=== PATIENT | female | born 1955 | race Caucasian/White ===

== ENCOUNTER 2019-09-06 09:30 | Emergency (ER) | payer BC ==
[~2019-09-06 09:30] MED LIST: predniSONE 20 MG Tab ONE
[2019-09-06] MEDS: predniSONE 20 MG Tab PO ONE (09:35)
--- NOTE | 2019-09-06 10:10 | ER ---
HISTORY OF PRESENT ILLNESS: A 64-year-old lady here with complaints of an allergic reaction due to a night cream makeup that she put on last evening before going to bed. She states that she woke up a couple of times during the night and felt a little itchy, but did not think much of it. This morning, she woke up and noticed a blotchy rash on her face and neck and more itching. She has taken 3 Benadryl so far, but feels that it is not enough. The patient denies any trouble with shortness of breath, wheezing, or of any swelling or enlargement sensation of her tongue. OBJECTIVE: GENERAL APPEARANCE: The patient is awake and alert. No obvious distress. VITAL SIGNS: Reviewed as listed. HEENT: Examining the patient's face reveals a blotchy maculopapular erythematous rash on the bahai areas across the forehead, the lower facial cheeks, and on the anterior aspect of her neck. There are few wheals present. This is consistent with urticaria. DIAGNOSIS: Urticaria due to a makeup product. TREATMENT PLAN: She will be given prednisone 40 mg now and 20 mg this evening. She is to continue on Benadryl until tomorrow. Activity should be as tolerated. No further makeup products until tomorrow morning and followup as p.r.n. ABIGAIL/IBAN /[id number]
== END 2019-09-06 09:40 | disposition home or self-care (01) ==
LOC: LB.ED 09:30
DX: L50.0 Allergic urticaria (principal)
CPT/HCPCS: 99283; A9270

== ENCOUNTER 2022-11-29 09:43 | Day surgery (SDC) | payer MEDICARE ==
[~2022-11-29 09:43] MED LIST changes: +Metoclopramide 10 MG/2 ML SDV IV PRN; -predniSONE 20 MG Tab ONE
[2022-11-29] MEDS: Sodium Chloride 0.9% 1,000 ML IV SCH (10:26)
[2022-11-29] MEDS ORDERED: Propofol 1,000 MG/100 ML SDV ONE (12:30)
== END 2022-11-29 13:40 | disposition home or self-care (01) ==
LOC: LB.SDS 09:43
PROVIDERS: ATTEND Surgery
DX: Z12.11 Encounter for screening for malignant neoplasm of colon (principal); E55.9 Vitamin D deficiency, unspecified; Z79.899 Other long term (current) drug therapy; Z87.891 Personal history of nicotine dependence
CPT/HCPCS: G0121; J2704; J7030

== ENCOUNTER 2024-06-20 10:49 | Emergency (ER) | payer MEDICARE ==
[2024-06-20] MEDS ORDERED: predniSONE 10 MG Tab ONE (11:00)
== END 2024-06-20 11:22 | disposition home or self-care (01) ==
LOC: LB.ED 10:49
DX: L23.7 Allergic contact dermatitis due to plants, except food (principal); Z87.891 Personal history of nicotine dependence; Z91.048 Other nonmedicinal substance allergy status
CPT/HCPCS: 99282; J7512